=== PATIENT | female | born 2000 | race African-American/Black ===

== ENCOUNTER 2022-01-10 08:34 | Emergency (ER) | payer OTHER, SELFPAY ==
--- NOTE | ~2022-01-10 | XR_ITS ---
EXAMINATION: XR chest 1V portable EXAM DATE: 01/10/2022 08:59 INDICATION: Chest tightness TECHNIQUE: Portable AP frontal chest x-ray was obtained. There is no prior study for comparison. FINDINGS: The lungs are clear. There are no pleural effusions. The cardiomediastinal silhouette is within normal limits. There is no pneumothorax suspected. The bones and soft tissues are unremarkab le. IMPRESSION: No acute cardiopulmonary findings. Reviewed, dictated and finalized at location A. GER TESTER
[2022-01-10 08:37] VITALS: BP 117/79; PULSE 70; RESP 13; TEMP 37.1; O2SAT 100
--- NOTE | 2022-01-10 08:50 | ECG_ITS ---
Measurements Intervals [place] Rate: 69 P: 35 SC: 156 QRS: 30 QRSD: 98 T: 11 QT: 367 QTc: 394 Interpretive Statements SINUS RHYTHM NORMAL ECG Electronically Signed On 01-10-2022 10:17:50 FARM MANAGEMENT PROFESSOR by Jared Louis D.O.
--- NOTE | 2022-01-10 08:52 | ED.ANXIETY ---
HPI - Anxiety General Chief Complaint: Anxiety Stated Complaint: anxiety Time Seen by Provider: 01/10/22 08:42 Source: patient Mode of arrival: EMS Limitations: no limitations History of Present Illness HPI narrative: 21 y/o female presents via ems with intermittent chest palpitations, sob, and chest tightness that started at 0200 am. patient states it woke her out of her sleep and she couldn't stop the symptoms. the patient called 911 and came to the ER for evaluation but felt fine when she arrived. patient states they did an ekg and discharged her. patient was driving home and started to have symptoms again. patient called ems again and came back for evaluation. patient has a hx of anxiety but has not seen a counselor or taken fluoxetine in 3 years. patient denies SI/HI but is tearful during assessment. patient states she has thought about cutting herself in the past but is currently not thinking that. patient states she is under a lot of stress MD complaint: anxiety, heart racing and shortness of breath Onset (ago): hour(s) (7) Symptoms: chest pain and palpitations Place: home History of similar episodes: Yes Provoking factors: emotional stress and other (school) Relieving factors: nothing Exacerbating factors: thinking about event Associated symptoms: palpitations Related Data Allergies Allergy/AdvReac Type Severity Reaction Status Date / Time No Known Allergies Allergy Verified 01/10/22 08:56 Review of Systems Review of Systems: All systems reviewed & are unremarkable except as noted in HPI and below Constitutional: Constitutional: Reports as per HPI Comments: tearful Eyes: Eyes: Reports no additional eye complaints ENT: Reports system reviewed and no additional complaints, except as documented Cardiovascular: Cardiovascular: Reports chest pain Comments: chest tightness Respiratory: Respiratory: Reports dyspnea Gastrointestinal: Gastrointestinal: Reports no additional gastrointestinal complaints Genitourinary: Genitourinary: Reports no additional female genitourinary complaints Musculoskeletal: Musculoskeletal: Reports no additional musculoskeletal complaints Integumentary/Breasts: Skin/Breast: Reports system reviewed and no additional complaints, except as docu Neurologic: Reports system reviewed and no additional complaints, except as documented Psychiatric: Psychiatric: Reports anxiety Endocrine: Endocrine: Reports no additional endocrine complaints Hematologic/Lymphatic: Hematologic/Lymphatic: Reports no additional hematologic/lymphatic complaints Allergic/Immunologic: Allergic/Immunologic: Reports no additional allergic/immunologic complaints PMFSH Social History Social History Substance use type: does not use Exam Const: General: no acute distress Orientation/consciousness: patient oriented x3 HENMT: Head: normal to inspection Eyes: Pupils: Equal, round and reactive pupils present Neck: Neck: normal visual inspection Chest: Chest palpation & inspection: normal inspection of the chest Resp: Effort & Inspection: normal respiratory effort Cardio: Rate: regular rate GI: GI Palp: Yes Soft to palpation : General: Yes no CVA tenderness Back/Spine/Pelvis: Back: no CVA tenderness Skin: General skin exam: normal color Neuro: General: patient oriented x3 Extrem: General: normal to inspection Psych: Appearance: grossly normal Affect: Sad affect present Thought content: Yes Normal thought content present Course Course Emergency Course: Patient states medicine helps with anxiety. Patient states she feels safe to go home but is requesting outpatient counseling to manage her anxiety. We'll start back on fluoxetine and hydroxyzine for breakthrough anxiety. Charge nurse contacted crisis and was given a given outpatient therapy numbers for the patient to follow-up with. Patient agreeable with plan. Patient denies suicidal ideations at this time Reevaluation(s) Date:
[2022-01-10] MEDS: hydrOXYzine HCL 25 MG TABLET 50 MG PO (09:09)
[2022-01-10 09:52] LABS: Basophils Percent Auto 0.5 % (0.2-1.2); Eosinophils Absolute Auto 0.2 K/mm3 (0-0.3); Eosinophils Percent Auto 3.8 % (0-4.4); Hematocrit 36.4 % (37.0-47.0); Hemoglobin 11.8 g/dL (12.0-15.0); Immature Granulocyte Absolute 0.01 K/mm3 (0.00-0.031); Immature Granulocyte Percent A 0.2 % (0-0.5); Lymphocytes Absolute Auto 1.65 K/mm3 (0.9-3.2); Lymphocytes Percent Auto 26.1 % (18.3-44.2); Mean Corpuscular HGB Conc 32.4 g/dl (32-36); Mean Corpuscular Hemoglobin 26.5 pg (26-34); Mean Corpuscular Volume 81.8 fl (80-100); Mean Platelet Volume 9.9 fl (7.4-10.4); Monocytes Absolute Auto 0.4 K/mm3 (0.1-0.6); Monocytes Percent Auto 6.5 % (2.6-8.5); Neutrophils Percent Auto 62.9 % (45.5-73.1); Platelet Count Result 282 k/mm3 (150-375); Red Blood Count 4.45 M/mm3 (4.2-5.4); Red Cell Distribution Width 15.4 % (11.5-14.5); White Blood Count 6.3 K/mm3 (4.5-10.0)
[2022-01-10 09:54] LABS: Add Urine Microscopic? NO; Appearance Urine Clear (Clear); Bilirubin Urine Negative (Negative); Blood Urine Negative (Negative); Color Urine Colorless (Yellow); Glucose Urine UA Negative (Negative); Ketones Urine Negative (Negative); Leukocyte Esterase Ur Negative LEU/UL (Negative); Nitrate Urine Negative (Negative); Protein Urine Negative (Negative); Urobilinogen Urine Negative mg/dL (<2.0)
[2022-01-10 10:02] LABS: Specific Grav Ur 1.002 (1.001-1.035)
[2022-01-10 10:03] LABS: Alanine Aminotransferase 9 U/L (4-35); Albumin Level 4.2 g/dL (3.5-5.1); Alkaline Phosphatase 78 U/L (38-126); Anion Gap 7 mmol/L (8-16); Aspartate Amino Transferase 18 U/L (14-36); Bilirubin,Total 0.5 mg/dL (0.2-1.3); Blood Urea Nitrogen 7 mg/dL (7-17); Calcium 9.1 mg/dL (8.4-10.2); Carbon Dioxide 23 mmol/L (22-30); Chloride 107 mmol/L (98-107); Estimated CRCL calculation 184 ml/min; Estimated Glomerular Filt Rate > 60; Glucose 94 mg/dL (65-110); Potassium 3.4 mmol/L (3.4-5.0); Sodium 137 mmol/L (137-145)
[2022-01-10 10:10] LABS: Barbiturate Screen Urine Negative (Negative); Benzodiazepines Screen Urine Negative (Negative)
[2022-01-10 10:13] LABS: Amphetamine Screen Urine Negative (Negative); Cannabinoid Screen Urine Negative (Negative); Cocaine Screen Urine Negative (Negative); Methadone Screen Urine Negative (Negative); Phencyclidine Screen Urine Negative (Negative)
[2022-01-10 10:20] VITALS: BP 146/81; PULSE 57; RESP 18; O2SAT 100
[2022-01-10 10:22] LABS: Opiate Screen Urine Negative (Negative)
[2022-01-10 11:02] LABS: Ethanol < 10 mg/dL (<10)
[2022-01-10 11:17] LABS: Troponin I < 0.012 ng/mL (0.000-0.034)
[2022-01-10 11:45] VITALS: BP 150/96; PULSE 72; RESP 18; TEMP 35.6; O2SAT 100
== END 2022-01-10 11:45 | disposition home or self-care (01) ==
PROVIDERS: Emergency Provider Nurse Practitioner Family
DX: F41.9 Anxiety disorder, unspecified (principal)
CPT/HCPCS: 36415; 71045; 80053; 80307; 81003; 83735; 84443; 84484; 85025; 93005; 99284; A9270

== ENCOUNTER 2025-02-12 17:52 | Emergency (ER) | payer OTHER, SELFPAY ==
--- NOTE | ~2025-02-12 | XR_ITS ---
XR knee RT min 4V Ordering provider: Gregor Almendarez MD History: . pain, FALL . Comparison: None. FINDINGS: BONES: No acute fracture or dislocation. JOINT SPACES: Normal. SOFT TISSUES: Normal. IMPRESSION: No acute osseous abnormality right knee. Consider MRI knee if there is concern for soft tissue internal derangement. Reviewed, dictated and finalized at location A.
--- OUTSIDE RECORDS SUMMARY | 2025-02-12 17:55 | XMS_ITS | Patient Health Record ---
Author Organization [facility] Address [address] [place] [address] Care Team Providers Care Life Coach Name Role Phone Antwon Patino Primary Care Provider Reason For Referral No Information Medications Medication SIG (Take, Route, Frequency, Duration) Notes Start Date End Date Status AeroChamber Plus Silviano-Vu attach to inhale r. use as directed. 35 02/22/2013 Not-Taking AeroChamber Plus Silviano-Vu Large 0 Attach to inhaler as directed for 0 days 12/26/2017 Active Ventolin HFA 108 (90 Base) MCG/ACT 2 puffs as needed every 4 - 6 hours if wheezing or 20 minutes before exercise Inhalation 1 for school and 1 for home for 0 days 11/26/2018 Active Fluoxetine Orally Not-Takin g Immunizations Vaccine Route Administration Date Status Comme nts VARICELLA IMMUNIZATION Unknown 11/24/2002 Administered Status:Complete d VARICELLA IMMUNIZATION Unknown 05/15/2009 Administered Status:Complete d TDAP VACCINE >7 IM Unknown 07/05/2013 Administered Stat us:Complete d Pneumococcal conjugate PCV 7 Unknown 01/17/2002 Administered Status:Complete d Pneumococcal conjugate PCV 7 Unknown 03/21/2002 Administered Status:Complete d Pneumococcal conjugate PCV 7 Unknown 05/23/2002 Administered Status:Complete d Pneumococcal conjugate PCV 7 Unknown 01/19/2003 Administered Status:Complete d MMR VACCINE, SC Unknown 11/24/2002 Administered Status: Complete d MMR VACCINE, SC Unknown 01/12/2006 Administered Status: Complete d Meningococcal MCV4O (Menveo) NON-VFC IM Intramuscular 12/26/2017 Administered Meningococcal MCV4O Unknown 07/05/2013 Administered Sta tus:Complete d Meningococcal Group B (Bexsero) VFC IM Intramuscular 02/19/2019 Administered Meningococcal Group B (Bexsero) VFC IM Intramuscular 06/11/2019 Administered IPV, VFC Unknown 01/17/2002 Administered Status:Compl ete d IPV, VFC Unknown 03/21/2002 Administered Status:Compl ete d IPV, VFC Unknown 09/22/2002 Administered Status:Compl ete d IPV, VFC Unknown 01/12/2006 Administered Status:Compl ete d HPV (human papillomavirus), quadrivalent, 3 dose schedule IM Intramuscular 04/21/2015 Administered HPV (human papillomavirus), quadrivalent, 3 dose schedule IM Intramuscular 10/06/2015 Administered HPV (GARDASIL 9) VFC IM Intramuscular 04/15/2016 Administe red Hib, unspecified formulation Unknown 01/17/2002 Administered Status:Complete d Hib, unspecified formulation Unknown 03/21/2002 Administered Status:Complete d Hib, unspecified formulation Unknown 05/23/2002 Administered Status:Complete d Hib, unspecified formulation Unknown 12/04/2002 Administered Status:Complete d HEPB VACC PED/ADOL 3 DOSE IM Unknown 2001 Administered Status:Complete d HEPB VACC PED/ADOL 3 DOSE IM Unknown 2001 Administered Status:Complete d HEPB VACC PED/ADOL 3 DOSE IM Unknown 05/23/2002 Administered Status:Complete d HEP A VACC, PED/ADOL, 2 DOSE Unknown 05/15/2009 Administered Status:Complete d HEP A VACC, PED/ADOL, 2 DOSE Unknown 04/21/2010 Administered Status:Complete d DTaP, 5 pertussis antigens Unknown 01/17/2002 Administered Status:Complete d DTaP, 5 pertussis antigens Unknown 03/21/2002 Administered Status:Complete d DTaP, 5 pertussis antigens Unknown 05/23/2002 Administered Status:Complete d DTaP, 5 pertussis antigens Unknown 05/25/2003 Administered Status:Complete d DTaP, 5 pertussis antigens Unknown 01/12/2006 Administered Status:Complete d Social History Tobacco Use: Social History Observation Description Date Details (start date - stop date) Never Smoker NA - NA Tobacco Use/Smoking Question Answer Notes Are you a nonsmoker Problems Problem Type SNOMED Code ICD Code Onset Dates Problem Status W/U Status Risk Notes Problem 356117391 Obesity (E66.9) 10/06/2015 Active confirmed Problem 56054312 Depression (F32.9) 04/21/2016 Active confirmed Problem 87440730 PHILIPPE (obstructive sleep apnea) (G47.33) 06/11/2019 Active confirmed Problem 880603945 Borderline anemi a (D64.9) Active confirmed Problem 430012186 Mild intermitten t asthma, unspecified whether complicated (J45.20) 02/28/2019 Active confirmed Problem 02928199 Allergic rhinitis, unspecified seasonality, unspecified trigger (J30.9) Active confirmed Plan Of Treatment Pending Test Test Name Order Date Glucose, Random (FS) IH 04/21/2015 Insurance Providers Payer Name Payer Address Payer Phone Subscriber Number Group Number Insured Name Patient Relationship to Insured Coverage Start Date Coverage End Date [facility] [address] [place] [address] [id number] Anjelica Dalton Self - patient is the insured [employer] [address] [address] [place] [address] [id number] Anjelica Dalton Self - patient is the insured Medical (General) History Medical History History ICD Code Ptosis Asthma, unspecified, unspecified status Obesity, unspecified Mild intermittent asthma Mild persistent asthma, unspecified whet her complicated Depression Obesity Allergic rhinitis, cause unspecified Unspecified disorder of refraction and a ccommodation Mild persistent asthma, unspecified whet her complicated Allergic rhinitis, cause unspecified 477 .9 Unspecified disorder of refraction and a ccommodation 367.9 Surgical History Surgery Date(Month/Year) Eye Surgery 2009 Hospitalization History Reason Date(Month/Year) [facility] ER for chest pain 12/2018
--- OUTSIDE RECORDS SUMMARY | 2025-02-12 17:55 | XMS_ITS | Clinical Summary ---
Author Organization [facility] Address [address] [place] [id number] Care Team Providers Care Intelligence Analyst Name Role Phone Antwon Patino MD Primary Care Prov ider Allergies No known active allergies Medications loratadine (CLARITIN) 10 MG tablet Take 1 tablet (10 mg total) by mouth daily. 30 tablet 10/13/2019 Active Social History Tobacco Use Types Packs/Day Years Used Date Smoking Tobacco: Never Smokeless Tobacco: Never Comments No Sex and Gender Information Value Date Recorded Sex Assigned at Not on file Legal Sex Female 10:18 PM BOWLING BALL ENGRAVER Gender Identity Not on file Sexual Orientation Not on file Last Filed Vital Signs Vital Sign Reading Time Taken Comments Blood Pressure 140/88 10/13/2019 9:46 AM BOWLING BALL ENGRAVER Pulse 96 10/13/2019 9:46 AM BOWLING BALL ENGRAVER Temperature 36.5 C (97.7 F) 10/13/2019 9:46 AM BOWLING BALL ENGRAVER Respiratory Rate 18 10/13/2019 9:46 AM BOWLING BALL ENGRAVER Oxygen Saturation 99% 10/13/2019 9:46 AM BOWLING BALL ENGRAVER Inhaled Oxygen Concentration - - Weight 175.9 kg (387 lb 12.6 oz) 10/13/2019 9:46 AM BOWLING BALL ENGRAVER Height 165.1 cm (5' 5 ) 10/13/2019 9:46 AM BOWLING BALL ENGRAVER Body Mass Index 64.53 10/13/2019 9:46 AM BOWLING BALL ENGRAVER Plan of Treatment Health Maintenance Due Date Last Done Comments Cervical Cancer Screening Pa p Smear (Age 21 to 29) Every 3 Years 2001 Cervical Cancer Screening 2001 Annual Physical 2004 HPV Vaccines (1 - 3-dose series) 2016 Meningococcal B Vaccine (1 o f 2 - Standard) 2017 Hepatitis C 2019 DTaP, Tdap and Td Vaccines ( 1 - Tdap) 2020 Hepatitis B Vaccines (1 of 3 - 19+ 3-dose series) 2020 COVID-19 Vaccine (1 - 2023-2 5 season) 2024 Influenza Adult (#1) 2024 Meningococcal Vaccine Aged Out No lyn criss eligible based on patient's age to complete this topic Pneumococcal Vaccine: Pediat rics (0 to 5 Years) and At-Risk Patients (6 to 64 Years) Aged Out No longer eligible b ased on patient's age to complete this topic RSV Immunizations Under 20 Months Aged Out No longer eligible based on patient's age to complete this topic Care Teams Intelligence Analyst Relationship Specialty Start Date End Date Antwon Patino MD PCP - General PEDIATRICS 03/19/19
[2025-02-12] MEDS: IBUPROFEN 600 MG TABLET PO (18:06)
[2025-02-12 18:11] VITALS: BP 147/92; PULSE 95; RESP 20; TEMP 36.6; O2SAT 100
--- NOTE | 2025-02-12 18:27 | ED.LOWEXIN ---
HPI - Extremity Injury (Lower) General Chief Complaint: Extremity Injury, Lower Stated Complaint: right knee pain Time Seen by Provider: 02/12/25 18:03 Source: patient Mode of arrival: ambulatory Limitations: no limitations History of Present Illness HPI Narrative: Patient is a 24-year-old female who presents the ED with report of right knee pain. Patient reports she was walking down a sloped pathway at school today when she slipped and her right knee bent backwards/hyper extended behind her. Complains of pain to her right knee, worse with ambulation. Has had difficulty ambulating or bearing full weight on right leg. Denies any other injuries. Denies head injury, LOC, numbness. Related Data Allergies Allergy/AdvReac Type Severity Reaction Status Date / Time No Known Allergies Allergy Verified 02/12/25 17:55 Review of Systems Review of Systems: All systems reviewed & are unremarkable except as noted in HPI. All systems reviewed & are unremarkable except as noted in HPI and below PMFSH Social History Social History Substance use type: does not use Exam Narrative: GENERAL: Well appearing, morbidly obese with BMI of 59.9, non-toxic, in no acute distress. HEAD: Normocephalic, atraumatic. RESPIRATORY: Airway patent, respirations nonlabored. CARDIOVASCULAR: Regular rate and rhythm without murmurs, rubs, or gallops. Pedal pulses intact. MUSCULOSKELETAL: No gross deformities. Mild limited range of motion of right knee due to pain. Diffuse tenderness throughout R anterior knee. No appreciable swelling. No calf tenderness. Sensation intact. SKIN: Warm, dry, normal color. NEURO: A&O X3. Speech clear. No ataxic movements. PSYCHIATRIC: Appropriate mood and affect. Normal interaction. Course Vital Signs Vital signs: Vital Signs Temperature 97.8 F 02/12/25 18:11 Pulse Rate 95 02/12/25 18:11 Respiratory Rate 20 02/12/25 18:11 Blood Pressure 147/92 H 02/12/25 18:11 Pulse Oximetry 100 02/12/25 18:11 Temperature 97.8 F 02/12/25 18:11 Pulse Rate 95 02/12/25 18:11 Respiratory Rate 20 02/12/25 18:11 Blood Pressure 147/92 H 02/12/25 18:11 Pulse Oximetry 100 02/12/25 18:11 MDM - Extremity Injury (Lower) MDM Narrative Medical decision making narrative: Patient?s injury is consistent with musculoskeletal etiology. No signs of neurologic or vascular compromise on physical examination. Compartments are soft without signs of compartment syndrome. XR right knee w/o evidence of acute fx. Pain is consistent with knee strain, discussed possibility of ligamentous or meniscal injury. Patient is felt to be stable for discharge home and further outpatient management and treatment. Given Robert bandage and crutches in the ED. Will refer to orthopedics for further evaluation if needed. Discussed rice therapy. Discussed return precautions. Discharged in stable condition. Medical Records Attestation: I reviewed the patient's medical records. Imaging Data Attestation: I personally reviewed and interpreted this imaging study as follows: Radiologist's impression: ITS Impressions Knee X-Ray 02/12/25 18:35 IMPRESSION: No acute osseous abnormality right knee. Consider MRI knee if there is concern for soft tissue internal derangement. Discharge Plan Discharge Clinical Impression: Fall from ground level, Strain of right knee Patient Disposition: Home, Self-Care Condition: Stable Instructions: Antibiotic Form, Knee Pain (ED), P.R.I.C.E. Treatment (ED) Additional Instructions: Your x-ray did not show any evidence of fracture. It is possible you could have injured a ligament or meniscus. Continue Tylenol and ibuprofen as needed for pain. Recommend frequent icing to right knee, elevation of right leg whenever able. Utilize Robert bandage for compression and support. Follow-up with orthopedics for further evaluation if needed. Return to an ED if you experience worsening or severe pain, recurrent injury, numbness, or any other symptoms of concern. Patient Language: Pakistani Prescriptions: No Action fluoxetine 20 mg capsule 20 mg PO DAILY Qty: 30 0RF hydroxyzine HCl 50 mg tablet 50 mg PO TID PRN (Reason: anxiety) Qty: 15 0RF Follow-up/Referrals: Juan Manuel Mac MD [Physician] - (ORTHOPEDICS) UNKNOWN,DOCTOR [Primary Care Provider] - Time of Disposition: 18:33
--- OUTSIDE RECORDS SUMMARY | 2025-02-12 18:49 | XMS_ITS | Clinical Summary ---
Author Organization [facility] Address [address] [place] [address] Care Team Providers Care Vault Person Name Role Phone Antwon Patino MD Primary [...] on file Legal Sex Female 10:18 PM MOTOR BRAKEMAN Gender Identity Not on file Sexual Orientation Not on file Last Filed Vital Signs Vital Sign Reading Time Taken Comments Blood Pressure 140/88 10/13/2019 9:46 AM MOTOR BRAKEMAN Pulse 96 10/13/2019 9:46 AM MOTOR BRAKEMAN Temperature 36.5 C (97.7 F) 10/13/2019 9:46 AM MOTOR BRAKEMAN Respiratory Rate 18 10/13/2019 9:46 AM MOTOR BRAKEMAN Oxygen Saturation 99% 10/13/2019 9:46 AM MOTOR BRAKEMAN Inhaled Oxygen Concentration - - Weight 175.9 kg (387 lb 12.6 oz) 10/13/2019 9:46 AM MOTOR BRAKEMAN Height 165.1 cm (5' 5 ) 10/13/2019 9:46 AM MOTOR BRAKEMAN Body Mass Index 64.53 10/13/2019 9:46 AM MOTOR BRAKEMAN Plan of Treatment Health Maintenance Due Date [...] age to complete this topic Care Teams Vault Person Relationship Specialty Start Date End Date Antwon Patino MD PCP - General PEDIATRICS 03/19/19
== END 2025-02-12 19:01 | disposition home or self-care (01) ==
LOC: ANHED 18:47
PROVIDERS: Emergency Provider Physician Assistant
DX: S86.911A Strain of unspecified muscle(s) and tendon(s) at lower leg level, right leg, initial encounter (principal); W10.2XXA Fall (on)(from) incline, initial encounter
CPT/HCPCS: 73564; 99283; A9270